=== PATIENT | male | born 1970 | race Caucasian/White ===

== ENCOUNTER 2018-05-22 16:50 | Emergency (ER) | payer OTHER ==
[2018-05-22 17:03] VITALS: BP 128/71
--- NOTE | 2018-05-22 18:09 | UC ---
Throat Pain/Nasal Abner HPI - HPI Summary HPI Summary: The patient is a 47-year-old male with a greater than one week history of sinus pressure and pain as well as nasal congestion. His upper teeth and gums are sensitive. He denies any fever or chills. He denies any chest pain or shortness of breath. - History of Current Complaint Chief Complaint: UCGeneralIllness Stated Complaint: SINUS COMPLAINT Time Seen by Provider: 05/22/18 18:04 Hx Obtained From: Patient Onset/Duration: Gradual Onset, Lasting Days Severity: Moderate Pain Intensity: 2 Pain Scale Used: 0-10 Numeric Associated Signs & Symptoms: Positive: Sinus Discomfort, Nasal Discharge - Allergies/Home Medications Allergies/Adverse Reactions: Allergies Allergy/AdvReac Type Severity Reaction Status Date / Time No Known Allergies Allergy Verified 05/22/18 17:03 Home Medications: Home Medications Cyanocobalamin (Vitamin B-12) [Vitamin B12] 2,500 mcg PO DAILY WITH MEAL [History Confirmed 05/22/18] Gabapentin 900 mg PO TID 05/22/18 [History Confirmed 05/22/18] PMH/Surg Hx/FS Hx/Imm Hx Previously Healthy: Yes - Surgical History Surgical History: Yes Surgery Procedure, Year, and Place: b/l carpal tunnel, left wrist, esophageal, uvula, left leg plate placed,. bariatric. left arm amputation - Family History Known Family History: Positive: Other - DAD -LUNG [place], MOM BREAST CA - Social History Alcohol Use: None Substance Use Type: None Smoking Status (MU): Former Smoker Have You Smoked in the Last Year: No - Immunization History Most Recent Influenza Vaccination: NEVER Most Recent Tetanus Shot: UNKNOWN Most Recent Pneumonia Vaccination: NEVER Review of Systems All Other Systems Reviewed And Are Negative: Yes Constitutional: Positive: Negative Skin: Positive: Negative Eyes: Positive: Negative ENT: Positive: Nasal Discharge, Sinus Congestion, Sinus Pain/Tenderness Respiratory: Positive: Cough Cardiovascular: Positive: Negative Gastrointestinal: Positive: Negative Genitourinary: Positive: Negative Motor: Positive: Negative Neurovascular: Positive: Negative Musculoskeletal: Positive: Negative Neurological: Positive: Negative Psychological: Positive: Negative Physical Exam Triage Information Reviewed: Yes Appearance: Well-Appearing, No Pain Distress, Well-Nourished Vital Signs: Initial Vital Signs Temp 98.1 F 05/22/18 16:58 Pulse 57 05/22/18 16:58 Resp 18 05/22/18 16:58 BP 128/71 05/22/18 16:58 Pulse Ox 99 05/22/18 16:58 Vital Signs Reviewed: Yes Eyes: Positive: Conjunctiva Clear ENT: Positive: Hearing grossly normal, Pharynx normal, Nasal congestion, Sinus tenderness. Negative: Nasal drainage, Trismus, Muffled voice Neck: Positive: Supple, Nontender, No Lymphadenopathy Respiratory: Positive: Lungs clear, Normal breath sounds, No respiratory distress, No accessory muscle use Cardiovascular: Positive: RRR, No Murmur Musculoskeletal: Positive: ROM Intact, Other: - AMP. LEFT ARM Neurological: Positive: Alert, Muscle Tone Normal Psychological Exam: Normal Skin Exam: Normal Throat Pain/Nasal Course/Dx - Differential Dx/Diagnosis Provider Diagnosis: Acute sinusitis Discharge - Sign-Out/Discharge Documenting (check all that apply): Patient Departure All imaging exams completed and their final reports reviewed: No Studies - Discharge Plan Condition: Stable Disposition: HOME Prescriptions: Amoxicillin PO (*) [Amoxicillin 875 MG (*)] 875 mg PO BID #20 tab Patient Education Materials: Sinusitis (ED) Referrals: Yenny Purvis MD [Primary Care Provider] - 1 Week (IF NOT BETTER) - Billing Disposition and Condition Condition: STABLE Disposition: Home
== END 2018-05-22 18:15 | disposition home or self-care (01) ==
LOC: UCEAST 16:50
DX: J01.90 Acute sinusitis, unspecified (principal); Z87.891 Personal history of nicotine dependence
CPT/HCPCS: 99212; G0463

== ENCOUNTER 2018-10-26 10:17 | Emergency (ER) | payer OTHER ==
[2018-10-26 10:36] VITALS: BP 119/66
--- NOTE | 2018-10-26 10:53 | UC ---
Throat Pain/Nasal Abner HPI - HPI Summary HPI Summary: Patient has had nasal congestion for 2 days. He is a nonsmoker. Patient is insistent that this always becomes a sinus infection and he wants a prescription for amoxicillin. - History of Current Complaint Chief Complaint: UCRespiratory Stated Complaint: SINUS PRESSURE Time Seen by Provider: 10/26/18 10:27 Hx Obtained From: Patient Onset/Duration: Gradual Onset Severity: Mild Pain Intensity: 2 Cough: None - Patient states he has a productive cough green sputum however this was after he had argued with me about needing an antibiotic for the sinus infection that he is convinced this upper respiratory illness is going to turn into. Prior to that he had stated he had no other symptoms Associated Signs & Symptoms: Positive: Sinus Discomfort, Nasal Discharge - Allergies/Home Medications Allergies/Adverse Reactions: Allergies Allergy/AdvReac Type Severity Reaction Status Date / Time No Known Allergies Allergy Verified 05/22/18 17:03 Home Medications: Home Medications Cholecalciferol TAB* [Vitamin D TAB*] 1,000 unit PO DAILY 10/26/18 [History Confirmed 10/26/18] Cyanocobalamin TAB* [Vitamin B12 TAB*] 500 mcg PO DAILY 10/26/18 [History Confirmed 10/26/18] Escitalopram * [Lexapro *] 20 mg PO DAILY 10/26/18 [History Confirmed 10/26/18] PMH/Surg Hx/FS Hx/Imm Hx Previously Healthy: Yes - Surgical History Surgical History: Yes Surgery Procedure, Year, and Place: Gastric Sleeve, 2016, [place];. b/l carpal tunnel, left wrist, esophageal, uvula, left leg plate placed, left arm amputation - Family History Known Family History: Positive: Other - DAD -LUNG CA, MOM BREAST CA - Social History Alcohol Use: None Substance Use Type: None Smoking Status (MU): Former Smoker Length of Time of Smoking/Using Tobacco: in high school Have You Smoked in the Last Year: No - Immunization History Most Recent Influenza Vaccination: NEVER Most Recent Tetanus Shot: UNKNOWN Most Recent Pneumonia Vaccination: NEVER Review of Systems All Other Systems Reviewed And Are Negative: Yes ENT: Positive: Nasal Discharge, Sinus Congestion, Sinus Pain/Tenderness Respiratory: Positive: Cough - Patient states he has a productive cough of greenish sputum. Is Patient Immunocompromised?: No Physical Exam Triage Information Reviewed: Yes Appearance: Well-Appearing, No Pain Distress, Well-Nourished Vital Signs: Initial Vital Signs Temp 98.4 F 10/26/18 10:28 Pulse 70 10/26/18 10:28 Resp 16 10/26/18 10:28 BP 119/66 10/26/18 10:28 Pulse Ox 100 10/26/18 10:28 Vital Signs Reviewed: Yes Eyes: Positive: Conjunctiva Clear ENT: Positive: Hearing grossly normal, Pharynx normal, Nasal drainage - Clear nasal coryza, TMs normal, Uvula midline. Negative: Trismus, Muffled voice Neck: Positive: Supple, Nontender, No Lymphadenopathy Respiratory: Positive: Lungs clear, Normal breath sounds, No respiratory distress, No accessory muscle use Cardiovascular: Positive: RRR, No Murmur, Pulses Normal, Brisk Capillary Refill Musculoskeletal Exam: Normal Musculoskeletal: Positive: Other: - Patient is a left arm amputee. Neurological Exam: Normal Psychological Exam: Normal Skin Exam: Normal Throat Pain/Nasal Course/Dx - Course Course Of Treatment: At this point time I feel this is a viral upper respiratory illness however patient was quite abrasive and insistent that he always needs amoxicillin for a sinus infection because this kind of upper respiratory illness always turns into a sinus infection. He states is going away for the weekend and is not coming back next week to sit here again for several hours and wait for an antibiotic. I reviewed possible side effects of antibiotic use especially was not necessary however he became more and more abrasive therefore I gave him the antibiotic prescription advising him this was viral and more than likely he did not need the antibiotic. - Differential Dx/Diagnosis Provider Diagnosis: URI (upper respiratory infection) Discharge - Sign-Out/Discharge Documenting (check all that apply): Patient Departure All imaging exams completed and their final reports reviewed: No Studies - Discharge Plan Condition: Fair Disposition: HOME Prescriptions: Amoxicillin PO (*) [Amoxicillin 875 MG (*)] 875 mg PO BID 10 Days #20 tab Patient Education Materials: Upper Respiratory Infection (DC) Referrals: Yenny Purvis MD [Primary Care Provider] - Additional Instructions: Increase fluids, [id number] cold medicines as directed and follow-up with your doctor no improvement in 3 or 4 days. - Billing Disposition and Condition Condition: FAIR Disposition: Home - Attestation Statements Provider Attestation: Per institutional requirements, I have reviewed the chart, however, I was not consulted specifically or made aware of this patient by the midlevel provider. I did not personally evaluate, interact with , or disposition this patient.
== END 2018-10-26 10:51 | disposition home or self-care (01) ==
LOC: UCCORT 10:17
DX: J06.9 Acute upper respiratory infection, unspecified (principal); Z87.891 Personal history of nicotine dependence
CPT/HCPCS: 99212; G0463